=== PATIENT | female | born 1990 | race American Indian/Alaskan Native ===

== ENCOUNTER 2017-02-18 09:25 | Emergency (ER) | payer SELFPAY ==
[2017-02-18 10:21] VITALS: BP 125/78
[2017-02-18] MEDS ORDERED: TYLENOL PO ONE (10:21)
[2017-02-18] MEDS ORDERED: FUL-GLO OP ONE (12:59)
[2017-02-18] MEDS ORDERED: TETRACAINE 0.5% OU ONE (12:59)
--- NOTE | 2017-02-18 15:30 | Emergency Department Report ---
HPI - General Chief Complaint: Eye Problems Time Seen by Provider: 02/18/17 12:51 - HPI HPI: A 6-year-old female presents today complaining of right thigh pain, burning, stinging. Positive for tearing and redness. Patient states that she stuck her eye. A medical program one hour prior to arrival. Denies wearing contact lenses or corrective glasses. Admits to some blurred vision. Denies fever, chills, nausea, vomiting, chest pain, shortness of breath, abdominal pain. ED Past Medical Hx - Past Medical History Hx Asthma: Yes - Surgical History Past Surgical History?: No - Social History Smoking Status: Never Smoker Substance Use Type: Alcohol - Medications Home Medications: Home Medications Medication Instructions Recorded Confirmed Last Taken Type Triamcinolone 0.1% [Kenalog 0.1% 1 applic TP TID #1 tube 02/01/15 Unknown Rx CREAM] diphenhydrAMINE [Benadryl CAP] 25 mg PO Q6HR PRN #20 capsule 02/01/15 Unknown Rx Erythromycin [Erythromycin Ophth 1 applic OP QID #1 tube 02/18/17 Unknown Rx Oint] Ofloxacin 0.3% [Ocuflox] 1 - 2 drops OP QID #1 bottle 02/18/17 Unknown Rx ED Review of Systems ROS: Stated complaint: RIGHT EYE INJURY Other details as noted in HPI Constitutional: denies: chills, fever, malaise Eyes: eye pain, vision change ENT: denies: ear pain, throat pain, congestion Respiratory: denies: cough, shortness of breath, wheezing Cardiovascular: denies: chest pain, palpitations Endocrine: no symptoms reported Gastrointestinal: denies: abdominal pain, nausea, vomiting Skin: denies: rash Neurological: denies: headache, weakness, numbness, paresthesias Physical Exam - Physical Exam Vital Signs: Vital Signs 02/18/17 10:16 Temperature 98.4 F Pulse Rate 69 Respiratory 16 Rate Blood Pressure 125/78 O2 Sat by Pulse 99 Oximetry Physical Exam: GENERAL: The patient is well-developed and well-nourished. Patient is in NAD. HEAD: Normocephalic. Atraumatic. EYES: Extraocular motions are intact, but painful with right eye upward movement. PERRL. Right eye conjunctiva injected. Ecchymosis noted under right eye, also tender to palpation. EARS: External auditory canals and tympanic membranes clear; hearing grossly intact. NOSE: Normal nasal mucosa with no nasal discharge. THROAT: No erythema, swelling or exudates. Teeth and gingiva in good general condition. NECK: Supple, nontender, without lymphadenopathy. No meningitic signs are noted. CHEST/LUNGS: Clear to auscultation throughout. HEART/CARDIOVASCULAR: Regular rate and rhythm. No murmurs, rubs or gallops. ABDOMEN: Abdomen is soft, nontender. Bowel sounds normoactive. No guarding or rebound tenderness. EXTREMITIES: Peripheral pulses intact. Capillary refill less than 2 seconds. NEURO: Alert and oriented x 3. Normal gait. ED Course Vital Signs 02/18/17 10:16 Temperature 98.4 F Pulse Rate 69 Respiratory 16 Rate Blood Pressure 125/78 O2 Sat by Pulse 99 Oximetry - Procedure Description Procedures done: Local anesthesia acquired with 2gtts of tetracaine ophthalmic solution. Fluorescence stain was then applied to the eye for further examination. The eye was visualized using a wood lamp and a moderate-sized corneal abrasion was noted over the pupil. No foreign body noted. Care instructions and follow up instructions were provided to the patient. ED Medical Decision Making - Lab Data Vital Signs 02/18/17 10:16 Temperature 98.4 F Pulse Rate 69 Respiratory 16 Rate Blood Pressure 125/78 O2 Sat by Pulse 99 Oximetry - Radiology Data Radiology results: report reviewed CT ORBIT/EAR/FOSSA WITHOUT CONTRAST INDICATION: Eye trauma, pain with EOMI. COMPARISON: None similar at this institution. FINDINGS: Noncontrast axial, sagittal and coronal CT reconstructions demonstrate normal, symmetric eye globes, including the lenses and retrobulbar appearance. Mild right maxillary sinus mucosal thickening inferiorly. Clear remainder imaged paranasal sinuses and mastoid air cells. Left external auditory canal debris may be directly visualized. Few radiopaque dental fillings. Intact bones. Normal imaged intracranial appearance. Nonspecific 2 mm frontal scalp radiodensity on axial image 26, series 3 and slight thickening more superiorly partially imaged. CONCLUSION: Normal orbits/eye globes CT appearance with few other incidental findings, as above. Please correlate. - Medical Decision Making 26-year-old female presents today complaining right thigh pain, redness, burning and stinging posts eye trauma. Slit lamp exam reveals a moderate size corneal abrasion to right eye. CT of orbit reveals no acute findings. Patient has been referred to communications billing analyst. Patient is in no acute distress at this time. She will be discharged home and is encouraged to follow up with a primary care provider. She will be sent home on ofloxacin optic drops and erythromycin and is encouraged to return to the emergency room for any worsening symptoms. Critical care attestation.: If time is entered above; I have spent that time in minutes in the direct care of this critically ill patient, excluding procedure time. ED Disposition Clinical Impression: Eye trauma Corneal abrasion Qualifiers: Encounter type: initial encounter Laterality: right Qualified Code(s): S05.01XA - Injury of conjunctiva and corneal abrasion without foreign body, right eye, initial encounter Disposition: TO HOME OR SELFCARE Is pt being admited?: No Does the pt Need Aspirin: No Condition: Stable Instructions: Corneal Abrasion (ED) Additional Instructions: Follow-up with primary care provider and communications billing analyst. Return to the emergency department if symptoms worsen. Prescriptions: Erythromycin [Erythromycin Ophth Oint] 1 applic OP QID #1 tube Ofloxacin 0.3% [Ocuflox] 1 - 2 drops OP QID #1 bottle Referrals: PRIMARY CARE, [Primary Care Provider] - 3-5 Days SHA SU MD [Staff Physician] - 3-5 Days TAZ VAN MD [Staff Physician] - 3-5 Days Forms: Work/School Release Form(ED), Accompanied Note Time of Disposition: 16:09
--- NOTE | 2017-02-18 15:48 | Cat Scan Report ---
CT ORBIT/EAR/FOSSA WITHOUT CONTRAST INDICATION: Eye trauma, pain with EOMI. COMPARISON: None similar at this institution. FINDINGS: Noncontrast axial, sagittal and coronal CT reconstructions demonstrate normal, symmetric eye globes, including the lenses and retrobulbar appearance. Mild right maxillary sinus mucosal thickening inferiorly. Clear remainder imaged paranasal sinuses and mastoid air cells. Left external auditory canal debris may be directly visualized. Few radiopaque dental fillings. Intact bones. Normal imaged intracranial appearance. Nonspecific 2 mm frontal scalp radiodensity on axial image 26, series 3 and slight thickening more superiorly partially imaged. CONCLUSION: Normal orbits/eye globes CT appearance with few other incidental findings, as above. Please correlate. Thank you for the opportunity to participate in this patient's care.
== END 2017-02-18 16:22 | disposition home or self-care (01) ==
LOC: ED 09:25
DX: S05.01XA Injury of conjunctiva and corneal abrasion without foreign body, right eye, initial encounter (principal); J45.909 Unspecified asthma, uncomplicated; X58.XXXA Exposure to other specified factors, initial encounter; Y93.9 Activity, unspecified; Y92.9 Unspecified place or not applicable; Y99.9 Unspecified external cause status
CPT/HCPCS: 70480

== ENCOUNTER 2018-10-23 09:17 | Emergency (ER) | payer SELFPAY ==
[2018-10-23] MEDS ORDERED: PERCOCET 5/325 PO ONE (11:44)
[2018-10-23] MEDS ORDERED: IBUPROFEN PO ONE (11:44)
[2018-10-23] MEDS ORDERED: XYLOCAINE 1% MPF 5 mL INFILTRATI ONE (11:45)
--- NOTE | 2018-10-23 12:11 | Emergency Department Report ---
Abscess Boil HPI - HPI Chief Complaint: Skin/Abscess/Foreign Body Stated Complaint: CYST/VAGINAL AREA PAIN Time Seen by Provider: 10/23/18 11:44 Duration: 3 Days Location: Perianal History: Yes Pain, No Fever, No Purulent Drainage, No Numbness, No Foreign Body, No Previous History, No Insect Bite HPI: 28-year-old Afro-[place] female presents to the emergency room for fall on vaginal area for 2-3 days. Patient reports it is very painful. She's never had this before. Patient has a past medical history of asthma currently takes no medications on a daily basis has no known drug allergies. Home Medications: Previous Rx's Medication Instructions Recorded Last Taken Type Triamcinolone 0.1% [Kenalog 0.1% 1 applic TP TID #1 tube 02/01/15 Unknown Rx CREAM] diphenhydrAMINE [Benadryl CAP] 25 mg PO Q6HR PRN #20 capsule 02/01/15 Unknown Rx Erythromycin [Erythromycin Ophth 1 applic OP QID #1 tube 02/18/17 Unknown Rx Oint] Ofloxacin 0.3% [Ocuflox 0.3% opth] 1 - 2 drops OP QID #1 bottle 02/18/17 Unknown Rx Ibuprofen [Motrin 600 MG tab] 600 mg PO Q8H PRN #15 tablet 10/23/18 Unknown Rx cephALEXin [Keflex] 500 mg PO Q8HR #30 cap 10/23/18 Unknown Rx Allergies/Adverse Reactions: Allergies Allergy/AdvReac Type Severity Reaction Status Date / Time No Known Allergies Allergy Verified 02/18/17 10:16 ED Review of Systems ROS: Stated complaint: CYST/VAGINAL AREA PAIN Other details as noted in HPI Comment: All other systems reviewed and negative Constitutional: denies: chills, fever ED Past Medical Hx - Past Medical History Previous Medical History?: Yes Hx Asthma: Yes - Surgical History Past Surgical History?: No - Social History Smoking Status: Current Some Day Smoker Substance Use Type: Alcohol - Medications Home Medications: Home Medications Medication Instructions Recorded Confirmed Last Taken Type Triamcinolone 0.1% [Kenalog 0.1% 1 applic TP TID #1 tube 02/01/15 Unknown Rx CREAM] diphenhydrAMINE [Benadryl CAP] 25 mg PO Q6HR PRN #20 capsule 02/01/15 Unknown Rx Erythromycin [Erythromycin Ophth 1 applic OP QID #1 tube 02/18/17 Unknown Rx Oint] Ofloxacin 0.3% [Ocuflox 0.3% opth] 1 - 2 drops OP QID #1 bottle 02/18/17 Unknown Rx Ibuprofen [Motrin 600 MG tab] 600 mg PO Q8H PRN #15 tablet 10/23/18 Unknown Rx cephALEXin [Keflex] 500 mg PO Q8HR #30 cap 10/23/18 Unknown Rx ED Abscess Boil Physical Exam - Exam General: Vital signs noted. No distress. Alert and acting appropriately. Size: 3 cm Exam: Yes Tenderness, Yes Fluctuance, Yes Surrounding Cellulites/Erythema, Yes Normal Neurologic Exam, Yes Normal Circulation, No Lymphangitis, No Crepitation, No Heart Murmur ED Course Vital Signs 10/23/18 09:24 Temperature 98.3 F Pulse Rate 121 H Respiratory 18 Rate Blood Pressure 135/92 O2 Sat by Pulse 100 Oximetry Critical care attestation.: If time is entered above; I have spent that time in minutes in the direct care of this critically ill patient, excluding procedure time. ED Disposition Clinical Impression: Abscess of right genital labia Disposition: DC-01 TO HOME OR SELFCARE Is pt being admited?: No Does the pt Need Aspirin: No Condition: Stable Additional Instructions: Complete antibiotics as prescribed pain medication as needed. Follow-up with CLEARING [employer] WORKER provider if he has any further concerns. Prescriptions: cephALEXin [Keflex] 500 mg PO Q8HR #30 cap Ibuprofen [Motrin 600 MG tab] 600 mg PO Q8H PRN #15 tablet PRN Reason: Pain Referrals: ANDRE DUNAWAY MD [Primary Care Provider] - 3-5 Days [facility] [Provider Group] - 3-5 Days Forms: Work/School Release Form(ED)
[2018-10-23 13:22] VITALS: BP 130/81
== END 2018-10-23 13:21 | disposition home or self-care (01) ==
LOC: ED 09:17
DX: N76.4 Abscess of vulva (principal); J45.909 Unspecified asthma, uncomplicated; F17.200 Nicotine dependence, unspecified, uncomplicated; Z79.899 Other long term (current) drug therapy
CPT/HCPCS: 87116; 99282